=== PATIENT | female | born 1955 | race Caucasian/White ===

== ENCOUNTER 2021-01-09 17:24 | Emergency (ER) | payer MEDICARE ==
[2021-01-09 17:31] VITALS: BP 153/79; PULSE 65; RESP 18; TEMP 98.5
--- NOTE | 2021-01-09 17:51 | ED ---
Eye Problem HPI - General Chief complaint: Eye Problems Stated complaint: blurred vision Time Seen by Provider: 01/09/21 17:33 Source: patient Mode of arrival: ambulatory Limitations: no limitations - History of Present Illness Initial comments: Martina a previously healthy 65-year-old female who presents the ER today for evaluation of sudden onset of blurred vision. Patient reports approximately 45 minutes prior to arrival she developed sudden onset of floaters in the vision of her left eye. She describes feeling that there is a line of black vision is diagonal through her eye. She denies any eye pain. Patient reports she has seen floaters in the past but never this significant. She follows with an internet marketing director and wears glasses but has not had her prescription updated in approximately one year. She does not follow with ophthalmology. She has no history of glaucoma. She denies any recent head injury or trauma to the eye. MD chief complaint: vision change Onset/Timin -: hour(s) Onset Description: sudden Location: left eye Place: home If Injury: none Eye Symptoms: decreased vision Severity: severe Consistency: constant Associated Symptoms: none Treatments Prior to Arrival: none - Related Data Allergies Allergy/AdvReac Type Severity Reaction Status Date / Time No Known Allergies Allergy Verified 01/09/21 17:31 Review of Systems ROS Statement: Those systems with pertinent positive or pertinent negative responses have been documented in the HPI. ROS Other: All systems not noted in ROS Statement are negative. Past Medical History Past Medical History: Atrial Fibrillation History of Any Multi-Drug Resistant Organisms: None Reported Past Surgical History: Hysterectomy, Orthopedic Surgery, Tonsillectomy Additional Past Surgical History / Comment(s): eye muscle surgery Past Psychological History: No Psychological Hx Reported Smoking Status: Never smoker Past Alcohol Use History: Daily Past Drug Use History: None Reported General Exam Limitations: no limitations General appearance: alert, in no apparent distress Head exam: Present: atraumatic, normocephalic Eye exam: Present: normal appearance, EOMI. Absent: scleral icterus, conjunctival injection, nystagmus, periorbital swelling, periorbital tenderness Pupils: Present: normal accommodation, unequal (left pupil ~1mm larger than right - normal per patient), other (IOP 16, 13, 14. Vision both eyes with glasses 20/40, Right 20/30, Left 20/200). Absent: irregular, miosis ENT exam: Present: normal exam, normal oropharynx Neck exam: Present: normal inspection Respiratory exam: Absent: respiratory distress Cardiovascular Exam: Present: regular rate GI/Abdominal exam: Present: soft Rectal exam: Present: deferred Extremities exam: Present: normal inspection, full ROM Neurological exam: Present: alert, oriented X3, CN II-XII intact, normal gait Course Vital Signs 01/09/21 17:27 Temperature 98.5 F Pulse Rate 65 Respiratory 18 Rate Blood Pressure 153/79 O2 Sat by Pulse 100 Oximetry Medical Decision Making - Medical Decision Making Asians was seen and evaluated history is obtained from the patient accepts an history and physical exam are concerning for retinal detachment Intraocular pressures are within normal limits, that ultrasound doesn't show any obvious retinal detachment Results were discussed with Dr. Parker ophthalmology on-call, his father Dr. Santiago came to bedside and evaluated the patient he will take the patient office for more in depth ophthalmology examination Disposition Clinical Impression: Visual loss, one eye, unqualified Disposition: HOME SELF-CARE Additional Instructions: You will be discharged from the ER to go to Dr Santiago's office for more thorough opthalmology exam Is patient prescribed a controlled substance at d/c from ED?: No Referrals: Nonstaff,Physician [Primary Care Provider] - 1-2 days
[2021-01-09] MEDS ORDERED: TROPICAMIDE 1% OPHTH DROPS 2 ML BTL BOTH EYES SCH (18:30)
--- NOTE | 2021-01-09 21:41 | CONS ---
CONSULTATION EMERGENCY CONSULTATION: CHIEF COMPLAINT: Floaters, left eye of 1 day duration. HISTORY OF PRESENT ILLNESS: Floaters, left eye associated with a black line of 1 day duration was a few flashes of light. This is the 1st attack. Patient denies any other previous eye surgeries. Medical history and systems analysis were reviewed. EYE EXAMINATION: Vision right eye 20/25, left eye 20/40. Extraocular motility full. Pupils were dilated by emergency room doctor. Lens 1+ NS OU. Retina unable to evaluate properly due to lack of indirect ophthalmoscope. The patient is coming to the clinic right now to evaluate her retina with indirect in my office. MMODL / IJN: [id number] /
== END 2021-01-09 19:52 | disposition home or self-care (01) ==
LOC: EC 17:24
DX: H54.62 Unqualified visual loss, left eye, normal vision right eye (principal); Z90.710 Acquired absence of both cervix and uterus; Z90.89 Acquired absence of other organs
CPT/HCPCS: 99284